=== PATIENT | female | born 1990 | race Caucasian/White ===

== ENCOUNTER → 2017-02-06 | Outpatient (CLI) | payer BC ==
[~2017-02-06] MED LIST: BCPILLS PO
[2017-02-08 13:23] LABS: LEAD BLOOD LESS THAN 1 MCG/DL (0-9)
== END | disposition home or self-care (01) ==
LOC: C.LAB1850 15:01
PROVIDERS: ATTEND Obstetrics & Gynecology
DX: R94.6 Abnormal results of thyroid function studies (principal); Z77.011 Contact with and (suspected) exposure to lead

== ENCOUNTER → 2017-02-06 | Outpatient (CLI) | payer BC | END | disposition home or self-care (01) | LOC: C.PAPS 09:56 | PROVIDERS: ATTEND Obstetrics & Gynecology | DX: Z01.419 Encounter for gynecological examination (general) (routine) without abnormal findings (principal) ==

== ENCOUNTER → 2017-07-09 | Outpatient (CLI) | payer BC ==
[2017-07-09 11:46] LABS: URINE APPEARANCE CLEAR (CLEAR); URINE BILIRUBIN NEG (NEG); URINE COLOR YELLOW; URINE NITRITE NEG (NEG); URINE PH 7.5 (4.5-7.5); URINE SPECIFIC GRAVITY 1.013 (1.000-1.030); UROBILINOGEN NEG (NEG)
[2017-07-09 11:47] LABS: MANUAL MICROSCOPIC REQUIRED? NO; REVIEW REQ? NO
== END | disposition home or self-care (01) ==
LOC: C.LABSPEC 11:22
PROVIDERS: ATTEND Obstetrics & Gynecology
DX: Z34.01 Encounter for supervision of normal first pregnancy, first trimester (principal); Z3A.00 Weeks of gestation of pregnancy not specified

== ENCOUNTER → 2017-07-16 | Outpatient (CLI) | payer BC ==
[2017-07-16 14:53] LABS: BASO % 0.1 %; BASO ABS # 0.01 K/uL (0-0.2); COMPLETE YES; EOS % 0.7 %; HEMATOCRIT 34.6 % (37-47); IG% 0.3 %; LYMPH ABS # 1.98 K/uL (1.2-3.4); MEAN CELL VOLUME 88.5 fL (80-100); MEAN CORPUSCULAR HGB CONC 36.1 g/dl (32-36); MONO % 5.8 %; NEUT % 74.1 %; PLATELET COUNT 226 K/uL (130-400); RED BLOOD COUNT 3.91 M/uL (4.2-5.4); WHITE BLOOD COUNT 10.44 K/uL (4.8-10.8)
[2017-07-16 15:20] LABS: THYROID STIMULATING HORMONE 0.883 uIu/ml (0.300-4.500)
[2017-07-19 07:28] LABS: CHLAMYDIA TRACH RNA*** NOT DETECTED (NOT DETECTED); GC (NEIS GONORRHOEAE)RNA** NOT DETECTED (NOT DETECTED)
== END | disposition home or self-care (01) ==
LOC: C.LAB1850 12:45
PROVIDERS: ATTEND Obstetrics & Gynecology
DX: Z34.01 Encounter for supervision of normal first pregnancy, first trimester (principal); E03.9 Hypothyroidism, unspecified

== ENCOUNTER → 2017-09-10 | Outpatient (CLI) | payer BC ==
[2017-09-10 15:26] LABS: GTGD 50 Grams
[2017-09-12 15:43] LABS: AFP CONCENTRATION 44.6 NG/ML; AFP MULTIPLE OF MEDIAN 1.29; AFPTS GESTATIONAL AGE 16.6 WEEKS; AFPTS INSULIN DEP DIABETIC? NO; AFPTS MATERNAL WT 154 LBS; ALPHA-FETOPROTEIN RACE CAUCASIAN=W; CIGARETTE SMOKER? NOT PROVIDED; HISTORY OF NTD NO; REPEAT SAMPLE? NO
== END | disposition home or self-care (01) ==
LOC: C.LAB1850 13:29
PROVIDERS: ATTEND Obstetrics & Gynecology
DX: Z34.02 Encounter for supervision of normal first pregnancy, second trimester (principal)

== ENCOUNTER → 2017-11-29 | Outpatient (CLI) | payer OTHER ==
[2017-11-29 15:59] LABS: HEMATOCRIT 32.6 % (37-47); HEMOGLOBIN 11.8 g/dL (12.0-16.0)
== END | disposition home or self-care (01) ==
LOC: C.LAB1850 14:43
PROVIDERS: ATTEND Obstetrics & Gynecology
DX: Z34.03 Encounter for supervision of normal first pregnancy, third trimester (principal)

== ENCOUNTER → 2017-11-29 | Outpatient (CLI) | payer OTHER | END | disposition home or self-care (01) | LOC: C.LABSPEC 15:47 | PROVIDERS: ATTEND Obstetrics & Gynecology | DX: Z34.03 Encounter for supervision of normal first pregnancy, third trimester (principal) ==

== ENCOUNTER → 2018-01-24 | Outpatient (CLI) | payer OTHER | END | disposition home or self-care (01) | LOC: C.LABSPEC 18:34 | PROVIDERS: ATTEND Obstetrics & Gynecology | DX: Z34.03 Encounter for supervision of normal first pregnancy, third trimester (principal) ==

== ENCOUNTER 2018-02-25 01:10 | Inpatient (IN) | payer OTHER ==
[~2018-02-25] VITALS: Ht 172.7 cm; Wt 79.4 kg
[2018-02-25] MEDS ORDERED: LACTATED RINGER'S 1000ML 1,000 ML IV PRN (01:44)
[2018-02-25] MEDS ORDERED: PRENTAB26 PO (01:52)
[2018-02-25 01:53] VITALS: Ht 172.7 cm; Wt 79.4 kg
[2018-02-25 02:10] LABS: HEMATOCRIT 40.5 % (37-47); HEMOGLOBIN 14.6 g/dL (12.0-16.0); MEAN CELL VOLUME 93.3 fL (80-100); MEAN CORPUSCULAR HEMOGLOBIN 33.6 pg (25-34); PLATELET COUNT 231 K/uL (130-400); RED CELL DISTRIBUTION WIDTH CV 13.1 % (11.5-14.5); RED CELL DISTRIBUTION WIDTH SD 44.9 fL (36.4-46.3); WHITE BLOOD COUNT 18.09 K/uL (4.8-10.8)
[2018-02-25] MEDS ORDERED: EpHEDrine SULFATE INJ 50 MG/ML AMP ONE (04:25)
[2018-02-25] MEDS ORDERED: BUPIVACAINE 0.25% 30 ML VIAL ONE (04:25)
[2018-02-25] MEDS ORDERED: FENTANYL 2MCG/ML ROPIV 1.25MG/ML 100ML BAG ONE (04:26)
[2018-02-25] MEDS ORDERED: FENTANYL CITRATE INJ 50 MCG/1 ML 2 ML VIAL ONE (04:26)
[2018-02-25] MEDS: LACTATED RINGER'S 1000ML 1,000 ML IV SCH ×2 (05:18→13:06)
[2018-02-25] MEDS ORDERED: LACTATED RINGER'S 1000ML 500 ML IV PRN ×2 (06:30→09:07)
[2018-02-25] MEDS ORDERED: ONDANSETRON INJ 2 MG/ML 2 ML VIAL IV PRN (06:30)
[2018-02-25] MEDS ORDERED: DiphenhydrAMINE HCL 50 MG/ML VIAL IV PRN (06:30)
[2018-02-25] MEDS ORDERED: NALOXONE HCL INJ 1 MG in SODIUM CHLORIDE 0.9% 1000ML 1,000 ML IV PRN (06:30)
[2018-02-25] MEDS ORDERED: EpHEDrine SULFATE INJ 50 MG/ML AMP IV PRN (06:30)
[2018-02-25] MEDS ORDERED: NALBUPHINE HCL INJ 10 MG/ML AMP IV PRN (06:30)
[2018-02-25] MEDS ORDERED: NALOXONE HCL INJ 0.4 MG/1 ML VIAL/CARP IV PRN (06:30)
[2018-02-25] MEDS: FENTANYL 2MCG/ML ROPIV 1.25MG/ML 100ML BAG EPI PRN ×3 (06:58→14:50)
[2018-02-25] MEDS ORDERED: OXYTOCIN 30 UNITS/500ML NSS IV PRN ×2 (09:15→15:30)
[2018-02-25] MEDS ORDERED: ACETAMINOPHEN 325 MG TAB ONE (14:27)
[2018-02-25] MEDS ORDERED: NURSING VERBAL MED ORDER ONE ×3 (14:30→14:45)
[2018-02-25] MEDS ORDERED: AMPICILLIN IV 2,000 MG in SODIUM CHLOR 0.9% AD-VAN 100ML 100 ML IV ONE (14:45)
[2018-02-25] MEDS ORDERED: LANOLIN OINT EXT PRN (15:30)
[2018-02-25] MEDS ORDERED: ACETAMINOPHEN 325 MG TAB PO PRN (15:30)
[2018-02-25] MEDS ORDERED: ACETAMINOPHEN/CODEINE 300/30MG TAB PO PRN ×2 (15:30)
[2018-02-25] MEDS ORDERED: HYDROCORTISONE ACETATE 25 MG SUPP PR PRN (15:30)
[2018-02-25] MEDS ORDERED: BENZOCAINE 20% AER SPR 82.5 GM CAN EXT PRN (15:30)
[2018-02-25] MEDS ORDERED: SUPERCREAM 0.870 % 15GM JAR EXT PRN (15:30)
[2018-02-25] MEDS ORDERED: DIPHTHERIA/TETANUS/PERTUSSIS 0.5 ML SYR/VIAL IM. ONE (15:30)
[2018-02-25] MEDS ORDERED: OXYTOCIN INJ 20 UNITS in LACTATED RINGER'S 1000ML 1,000 ML IV SCH (15:30)
--- NOTE | 2018-02-25 17:10 | Anesthesia Procedure Note ---
Anesthesia Epidural Removal Nt Date & Time February 25, 2018 at 17:10 Vital Signs Pain Intensity: 0.0 Notes Mental Status: alert / awake / arousable, participated in evaluation Nausea / Vomiting: adequately controlled Pain: adequately controlled Airway Patency, RR, SpO2: stable & adequate BP & HR: stable & adequate Hydration State: stable & adequate Neuraxial Anesthesia: was administered, sensory block is resolving Anesthetic Complications: no major complications apparent, pt satisfied with anesthetic care Epidural: removed without complications, with tip intact
--- NOTE | 2018-02-25 17:27 | DELIVERY SUMMARY ---
DATE OF OPERATION: 02/25/2018 The patient dilated to complete and pushed to deliver a viable male , Apgars 8 and 9 via over second degree perineal laceration. Mouth and nose were bulb suctioned at the perineum. Shoulders and body were delivered with ease. The infant was vigorous and crying at . 's cord was clamped at approximately 1 minute of life per the patient's instruction. Then, the was placed on maternal abdomen, where the cord was then doubly clamped and cut. Placenta was delivered spontaneously and intact 3-vessel cord. Hemostasis achieved with dilute Pitocin and uterine massage. The cervix and sulci were intact. The laceration was repaired in the usual fashion using 2-0 and 3-0 Vicryl. EBL 300 mL. Mother and baby stable in recovery. I attest to the content of the Intraoperative Record and any orders documented therein. Any exception s are noted below.
[2018-02-25] MEDS: DOCUSATE SODIUM 100 MG CAP PO SCH (19:40)
[2018-02-25 19:45] VITALS: BP 111/71; PULSE 79; TEMP 37; O2SAT 99
[2018-02-25 23:05] VITALS: BP 103/62; PULSE 84; TEMP 36.8; O2SAT 97
[2018-02-25] MEDS: IBUPROFEN 600 MG TAB PO PRN (23:09)
[2018-02-26 03:40] VITALS: BP 101/63; PULSE 72; TEMP 36.5; O2SAT 97
--- NOTE | 2018-02-26 06:19 | Progress Note ---
Subjective February 26, 2018. Subjective conversation w/ patient, physical exam Ambulation: ambulating normally Voiding: no voiding problems Diet Tolerance: Regular Diet Lochia: Small Feeding Type: Breast Feeding Pain: denies pain issues Objective Vital Signs Date Time Temp Pulse Resp B/P (MAP) Pulse Ox O2 Delivery O2 Flow Rate FiO2 02/26/18 03:40 36.5 72 16 101/63 (76) 97 Room Air 02/25/18 23:05 36.8 84 16 103/62 (76) 97 Room Air 02/25/18 23:05 97 Room Air 02/25/18 19:45 37.0 79 18 111/71 (84) 99 Room Air Physical Exam General Appearance: WELL-APPEARING, WD/WN, NO APPARENT DISTRESS Respiratory/Chest: lungs clear Cardiovascular: regular rate, rhythm Abdomen: non tender, soft Fundus: Firm, Relation to Umbilicus (1 above, needs to void) Extremities: non-tender Laboratory Results Last 24 Hours Test 02/26/18 04:44 Assessment and Plan Post- Day#: 1 Continue Routine Care: stable routine care. breast feeding.
[2018-02-26 06:48] LABS: HEMATOCRIT 35.4 % (37-47); HEMOGLOBIN 12.4 g/dL (12.0-16.0)
[2018-02-26 07:42] VITALS: BP 114/77; PULSE 66; TEMP 36.3
[2018-02-26] MEDS: PRENATAL VITAMIN TAB PO SCH (07:51)
[2018-02-26] MEDS: DOCUSATE SODIUM 100 MG CAP PO SCH ×2 (07:51→20:03)
[2018-02-26] MEDS ORDERED: PRENATAL VITAMIN TAB PO SCH (08:00)
[2018-02-26 12:01] VITALS: BP 103/66; PULSE 63; TEMP 36.4
[2018-02-26 16:30] VITALS: BP 106/69; PULSE 70; TEMP 36.7
[2018-02-26] MEDS: IBUPROFEN 600 MG TAB PO PRN (16:38)
[2018-02-26] MEDS ORDERED: BISACODYL 5 MG TABEC PO SCH (20:00)
[2018-02-26 23:30] VITALS: BP 104/63; PULSE 61; TEMP 36.4; O2SAT 98
--- NOTE | 2018-02-27 06:55 | Progress Note ---
Subjective February 27, 2018. Subjective conversation w/ patient Ambulation: ambulating normally Voiding: no voiding problems Diet Tolerance: Regular Diet Lochia: Small Feeding Type: Breast Feeding Pain: Abdominal cramping noted, worse with . Improved with analgesia Review of Systems Constitutional: No fever, No chills Respiratory: No shortness of breath Cardiac: No chest pain Abdomen: No nausea, No vomiting Female : + problem reported (Pt concerned regarding stitch possibly coming loose, reports searing pain in perineal region) Objective Vital Signs Date Time Temp Pulse Resp B/P (MAP) Pulse Ox O2 Delivery O2 Flow Rate FiO2 02/26/18 23:30 36.4 61 18 104/63 (77) 98 Room Air 02/26/18 23:30 98 Room Air 02/26/18 16:30 Room Air 02/26/18 16:30 36.7 70 16 106/69 (81) Room Air 02/26/18 12:01 36.4 63 20 103/66 (78) 02/26/18 07:42 36.3 66 18 114/77 (89) Room Air Physical Exam General Appearance: WELL-APPEARING, WD/WN, NO APPARENT DISTRESS Abdomen: soft Fundus: Firm, Non-Tender, Relation to Umbilicus (2 below) Extremities: no pedal edema, no calf tenderness Assessment and Plan Post- Day#: 2 Continue Routine Care: 27F s/p NVD complicated by chorioamnionitis day 2 - O+, Rubella Immune, GBS -ve - pt doing well clinically - Vital signs reviewed and WNL - Hemoglobin reviewed. 14.6 -> 12.4 - Encourage ambulation, monitor and control pain with Motrin PRN - Pt ready for d/c today and counselled on discharge instructions Resident Physician Supervision Note: I was present with Dr. Gusman during the history and exam. I discussed the case with the resident and agree with the findings and plan as documented in the note. Any exceptions or clarifications are listed here: PPD#2 doing well. DC home today. Documented By: Shakila Priest Resident Tracking Resident Involvement: Resident Care Provided Care Provided: OB Delivery
--- NOTE | 2018-02-27 06:56 | Discharge Instructions ---
Discharge Instructions Date of Service February 27, 2018. Admission Reason for Admission: Normal Labor Discharge Discharge Diagnosis / Problem: Vaginal Delivery Discharge Goals Goal(s): Routine recovery after delivery Medications Continue Dispensed Medications: supercream, dermaplast, tucks, lansinoh Activity Recommendations Activity Limitations: per Instructions/Follow-up section . Instructions / Follow-Up Instructions / Follow-Up ACTIVITY RECOMMENDATIONS: * Gradual return to full activity over the next 2-3 weeks. * No lifting - nothing heavier than baby over the next 2-3 weeks. * Do not engage in vigorous exercise, sexual activity or sports until cleared by your physician. * Do not drive or operate any motorized equipment until cleared by your physician. * You may shower/bathe daily. MEDICATIONS: For discomfort or pain, you may use Acetaminophen (Tylenol), Ibuprofen (Advil), or Naproxen (Aleve) following the package directions. For constipation you may use Colace following the package directions. BREAST CARE: If you are not breast feeding: * Wear a supportive bra 24 hours a day for one to two weeks. * Avoid stimulating your breasts and nipples as much as possible during the first few weeks after delivery. * When taking a shower, have the warm water hit your back, not breasts. * When your breasts feel full, apply ice packs. Usually three to four times a day helps ease the discomfort. * Take a mild pain medication (Tylenol / Motrin) when you are uncomfortable. If breast feeding: * Use breast milk to lubricate nipples. Lansinoh cream may be used for sore nipples. You do not need to remove cream prior to breast feeding. If using a different brand of cream, check the label for directions regarding removal of cream prior to nursing. * Wear a supportive bra. * If having problems with breasts or breast feeding, call a business analyst consultant or your health care provider. EPISIOTOMY CARE: After delivery, if you have an episiotomy (stitches), the following steps will ease discomfort and aid healing. * For the first 24 hours after delivery, place ice packs next to your episiotomy to help reduce swelling. * After the first 24 hour-period, sitz baths, either portable or in the tub, are suggested. A shower with a shower arm sprayed over the episiotomy may be comforting. * Michelle care should be done after each voiding and bowel movement. Squirt warm water from a plastic bottle over the perineum (region of the body between the anus and urinary opening) and pat dry. * Use Dermoplast to ease discomfort. Shake container. [place] directly over the episiotomy. Place a Tucks on a clean sanitary pad next to your episiotomy. SPECIAL CARE INSTRUCTIONS: When you are discharged from the hospital, it is important for you to follow the instructions listed below: * During the first week at home, you should be able to care for yourself and your baby. In addition, the usual light household activities are encouraged. * Limit your activities to the way you feel. Do not try to clean the house or move furniture. Be sensible. * If you actively engage in sports and have done so up until the time of your delivery, you may resume these activities as soon as you feel able. This may take up to one month or even longer. Use good judgment. * Continue to take your vitamins for at least six weeks after the of your baby. * Your diet need not be limited unless you were on a special diet before your delivery. Breast-feeding mothers need around 2500 calories per day and at least 64-80 ounces of fluid per day (8 to 10 glasses). * You should eat foods from the four major food groups. Crash diets or fad diets are to be avoided. Eating lean meats, fresh fruits and vegetables, low-fat dairy products, high fiber foods and a regular exercise program, will help you get back to your pre- weight without putting your health at risk. * Constipation is sometimes a problem after delivery. Take a mild laxative as needed. If breast feeding, Milk of Magnesia is acceptable to use. You may use a suppository or Fleets enema if no episiotomy. * A daily shower or tub bath is suggested. Be sure to thoroughly and gently dry the perineum. * A bloody vaginal discharge will usually continue until around four weeks post . A small amount of bleeding may continue for as long as six weeks. Vaginal discharge changes from the bright red bleeding after delivery to pink then brownish and finally yellowish-pink before becoming white and disappearing. * Bleeding may increase with activity. Your first period may come in 4-8 weeks. If you are breast feeding, your period may be delayed even longer. * Idana (sex) can begin whenever both you and your partner feel comfortable and do not have any form of genital infection. It is recommended that you wait at least six weeks for internal and external healing to occur. If you have questions, please talk to your health care practitioner. A condom should be used to prevent infection and . * Foreplay, gentle intercourse and lubrication is very important the first several times to prevent pain. A water-based lubricant such as K-Y jelly or Astroglide may be used. * If you have RH negative blood and your baby is RH positive, you will receive RHOGAM by injection prior to discharge. The nurse will give you a card to keep with you that has the date and place that you received RHOGAM after delivery. * During your care, you had a Rubella screen done to check for the presence of rubella antibodies in your blood. If your test was negative, you will receive a Rubella vaccine prior to discharge. This vaccine may cause a fever, soreness at the injection site and flu-like symptoms. If these symptoms persist, notify your health care practitioner. is not advised for one month after a Rubella vaccine. * Verbalizes understanding of car seat law as reviewed with patient nursing. * Car Seat hand-out given and reviewed with patient by nursing. * Shaken baby information reviewed with patient by nursing. Call you doctor if: * Heavy bleeding (saturating several pads an hour) or passing clots the size of your fist. * A fever >101 degrees F (38.3 degrees C) on two occasions four hours apart and /or chills. * Unusual pain in the pelvic or vaginal areas. * "Baby Blues" lasting longer than two weeks. If you have any questions or concerns, call your health care practitioner at . FOLLOW UP VISIT: * Please call the office at to schedule a 6 week examination. It is important you keep this appointment. It is important for you to make arrangements for either yearly or twice yearly check-ups thereafter. Current Hospital Diet Patient's current hospital diet: Regular OB Diet Discharge Diet Recommended Diet: Regular Diet Pending Studies Studies pending at discharge: no Medical Emergencies . Who to Call and When: Medical Emergencies: If at any time you feel your situation is an emergency, please call 911 immediately. . Non-Emergent Contact Non-Emergency issues call your: Primary Care Provider . . "Provider Documentation" section prepared by Bria Gusman. .
[2018-02-27] MEDS ORDERED: BISACODYL 10 MG SUPP PR PRN (07:00)
[2018-02-27 07:30] VITALS: BP 100/65; PULSE 60; TEMP 36.5; O2SAT 98
[2018-02-27 07:40] VITALS: O2SAT 98
[2018-02-27] MEDS: PRENATAL VITAMIN TAB PO SCH (08:00)
[2018-02-27] MEDS: DOCUSATE SODIUM 100 MG CAP PO SCH (08:13)
[2018-02-27] MEDS: IBUPROFEN 600 MG TAB PO PRN ×2 (08:14→17:23)
[2018-02-27 11:15] VITALS: BP 99/61; PULSE 73; TEMP 36.9; O2SAT 98
[2018-02-27 16:00] VITALS: BP 112/77; PULSE 70; TEMP 36.6; O2SAT 99
[2018-02-27 18:35] VITALS: BP_DIAS 77; PULSE 70; TEMP 36.6
== END 2018-02-27 18:45 | disposition home or self-care (01) | DRG 775 ==
LOC: C.LD 01:10 → C.OPB 01:10 → C.LD 01:47 → C.OBG 19:00
PROVIDERS: ADMIT Obstetrics & Gynecology; ATTEND Obstetrics & Gynecology
PROC: 10E0XZZ Delivery of Products of Conception, External Approach (ICD-10-PCS; principal; 2018-02-25)
PROC: 0KQM0ZZ Repair Perineum Muscle, Open Approach (ICD-10-PCS; principal; 2018-02-25)
DX: O70.1 Second degree perineal laceration during delivery (principal); Z37.0 Single live birth; Z3A.40 40 weeks gestation of pregnancy

== ENCOUNTER 2020-05-27 04:41 | Inpatient (IN) ==
[2020-05-27] MEDS ORDERED: CALCIUM CARBONATE 500 MG CHEWABLE TAB PO PRN (05:29)
[2020-05-27] MEDS ORDERED: OXYTOCIN 30 UNITS/500 ML BAG IV PRN ×2 (06:05→08:04)
[2020-05-27] MEDS ORDERED: BUPIVACAINE 0.25% 30 ML VIAL ONE (06:14)
[2020-05-27] MEDS ORDERED: ePHEDrine sulfate 50 MG/ML AMP ONE (06:14)
[2020-05-27] MEDS ORDERED: fentaNYL citrate 100 MCG/2 ML VIAL ONE (06:15)
[2020-05-27] MEDS ORDERED: fentaNYL 2MCG/ML ROPIV 1.25MG/ML 100 ML BAG EPI ONE (06:15)
[2020-05-27] MEDS: LACTATED RINGER'S 1,000 ML IV PRN ×2 (06:34→07:30)
[2020-05-27 06:39] LABS: Hematocrit (blood only) 38.4 % (37-47); Hemoglobin 13.6 g/dL (12.0-16.0); Mean Corpuscular Hemoglobin 33.7 pg (25-34); Mean Platelet Volume 8.7 fL (7.4-10.4); Platelet Count 160 K/uL (130-400); RDW Standard Deviation 48.4 fL (36.4-46.3); Red Blood Count 4.04 M/uL (4.2-5.4); White Blood Count 13.49 K/uL (4.8-10.8)
[2020-05-27] MEDS ORDERED: ePHEDrine sulfate 50 MG/ML AMP IV PRN (07:04)
[2020-05-27] MEDS ORDERED: fentaNYL 2MCG/ML ROPIV 1.25MG/ML 100 ML BAG EPI PRN (07:04)
[2020-05-27] MEDS ORDERED: ONDANSETRON INJ 2 MG/ML 2 ML VIAL IV PRN (07:04)
[2020-05-27] MEDS ORDERED: NALOXONE HCL 0.4 MG/1 ML VIAL/CARP IV PRN (07:04)
[2020-05-27] MEDS ORDERED: DiphenhydrAMINE HCL 50 MG/ML VIAL IV PRN (07:04)
[2020-05-27] MEDS ORDERED: NALOXONE HCL 1 MG in SODIUM CHLORIDE 0.9% 1000ML 1,000 ML IV PRN (07:04)
--- NOTE | 2020-05-27 07:06 | Anesthesiology Consultation ---
Date of Service May 27, 2020 Covid 19 negative on 05/24/20. Assessment & Plan Chart Review Chart Review: Patient NOT seen in Pre Admission Testing and Acceptable Risk for Labor Epidural Consults Requested none ASA ASA2 Proposed Anesthesia Anesthesia Type: Labor Epidural and CSE Risk / Benefits Reviewed With: PT / POA / Parent / Guardian, Accepts Plan and Informed Consent Obtained History Height/Weight Height: 5 ft 8 in Weight: 78.925 kg Allergies Allergy/AdvReac Type Severity Reaction Status Date / Time No Known Drug Allergies Allergy Mild None Verified 05/27/20 04:57 Medications Home Medications Medication Instructions Recorded Confirmed Last Taken PNV cmb#95-ferrous fumarate-FA 1 tab PO DAILY 12/22/18 05/27/20 05/26/20 [] Active Medications Generic Name Dose Route Start Last Admin Trade Name Freq PRN Reason Stop Dose Admin Calcium Carbonate 500 mg 05/27/20 05:29 05/27/20 05:41 Calcium Carbonate 500 Mg Chewable Tab PO 06/26/20 05:28 500 mg Q6H PRN Administration Indigestion Lactated Ringer's 1,000 mls @ 125 mls/hr 05/27/20 06:05 05/27/20 06:34 Lr IV 05/29/20 06:04 999 mls/hr .Q8H PRN Administration L&D Protocol Protocol NPO Date Last Intake of Fluids: 05/27/20 Time Last Intake of Fluids: 03:00 Date Last Intake of Solids: 05/27/20 Time Last Intake of Solids: 03:00 Past Medical History Medical History Acute sinusitis Asthma History of chicken pox Normal labor Exercise / Class Metabolic Activity II 4-5 Yardwork/Stairs/Walk up hill Past Family History Family History Grandfather (Maternal) Heart disease Hypertension Grandfather (Paternal) Heart disease Hypertension Other No significant family history Past Surgical History Surgical History S/P appendectomy S/P wisdom tooth extraction Past Anesthesia History No Hx of Anesthesia Complications and No Family Hx of Anesthesia Complications History of PONV No Hx of PONV and No Hx of Motion Sickness Social History Smoking Status: Never smoker Hx Alcohol Use: No Hx Substance Use: No substance use type: does not use Review of Systems no chest pain or sob Physical Exam Vital Signs Last Vital Signs Temp 37.2 C 05/27/20 04:59 Pulse 82 05/27/20 07:03 Resp 18 05/27/20 04:59 BP 126/67 05/27/20 07:03 Pulse Ox 100 05/27/20 07:02 ENMT Mouth: no TMJ abnormality Thyromental Distance: > or= 3.5 Finger Breadths Mallampati Class: II Neck normal visual inspection Respiratory normal respiratory effort Auscultation: lungs clear to auscultation bilaterally Cardiovascular Rate/Rhythm: regular rate and regular rhythm Musculoskeletal Spine: normal cervical ROM Neurologic moves all extremities Psychiatric Orientation: alert and oriented x 3 Testing Laboratory Results 05/27/20 06:23
[2020-05-27 07:23] LABS: Mean Corpuscular Hgb Conc 35.4 g/dL (32-36)
--- NOTE | 2020-05-27 08:13 | Labor Progress Brief Note ---
Date of Service May 27, 2020 Subjective Labor - comfortable with epidural - patient expresses worry that the epidural has made her contractions "space apart." Wants to know if we should augment. Discussed AROM now, pitocin profiled to use if needed. She is agreeable. Assessment & Plan (1) Normal labor and delivery: AROM for augmentation performed at this time. Continue current management. Pitocin can be utilized if contractions do not remain Q3m or closer. Admission and Anticipated Discharge Date Admission Date: May 27, 2020 Physical Exam Physical Exam: AROM clear fluid FHT Cat 1 [place] Q3m Results & Data ([facility]) Vital Signs (Past 12 Hours) Vital Signs Temp Pulse Resp BP Pulse Ox 05/27/20 08:07 86 100 05/27/20 08:05 84 91/51 L 05/27/20 08:02 79 100 05/27/20 07:57 72 99 05/27/20 07:52 73 100 05/27/20 07:49 77 93/54 L 05/27/20 07:47 79 92/55 L 100 05/27/20 07:45 73 93/51 L 05/27/20 07:43 68 93/53 L 05/27/20 07:42 71 100 05/27/20 07:41 79 91/54 L 05/27/20 07:39 76 92/50 L 05/27/20 07:37 77 91/50 L 100 05/27/20 07:35 77 89/53 L 05/27/20 07:33 75 98/49 L 05/27/20 07:32 71 100 05/27/20 07:31 75 94/51 L 05/27/20 07:29 73 93/54 L 05/27/20 07:27 75 90/53 L 100 05/27/20 07:25 77 91/55 L 05/27/20 07:22 73 100 05/27/20 07:17 80 136/61 100 05/27/20 07:16 85 123/57 L 05/27/20 07:15 87 91 05/27/20 07:12 89 100 05/27/20 07:10 86 90 05/27/20 07:07 81 100 05/27/20 07:03 82 126/67 05/27/20 07:02 83 100 05/27/20 06:57 76 100 05/27/20 06:52 77 100 05/27/20 06:47 79 100 05/27/20 06:42 78 100 05/27/20 06:38 79 89 L 05/27/20 06:37 78 100 05/27/20 04:59 99.0 F 18 05/27/20 04:53 76 106/55 L Coding Level of Care Code None Diagnoses Normal labor and delivery O80
--- NOTE | 2020-05-27 08:35 | History & Physical Report ---
Date of Service May 27, 2020 Assessment & Plan (1) Active labor at term: PNL: Rh pos, RI, GBS neg, COVID neg Admit, labs, start IV Epidural when desired; anesthesiology consult placed Anticipate Admission and Anticipated Discharge Date Admission Date: May 27, 2020 History of Present Illness Primary Care Provider: Mesha Donnelly MD More Mackey is a 30 y/o female currently at 40 2/7 WGA with an MELISSA 05/25/20 as determined by LMP who is here for . Pt was seen in office yesterday and had membrane stripping. She returned home and then started to notice increasing contractions and pain. Her was uncomplicated. + contractions; + movement; - fluid loss; + bloody show Had regular appointments with OB. Blood type: O+ Antibody screen: neg Labs 10/28/19 Rubella: immune VDRL/RPR: nonreactive Gonorrhea: neg Chlamydia: neg HIV: neg HbSAg: neg GBS: negative 04/29/20 COVID-19 negative 05/24/20 Other screens: panoram: low risk, female - CF/SMA prev neg AFP Allergies Allergy/AdvReac Type Severity Reaction Status Date / Time No Known Drug Allergies Allergy Mild None Verified 05/27/20 04:57 Home Medications Home Medications Medication Instructions Recorded Confirmed Type PNV cmb#95-ferrous fumarate-FA 1 tab PO DAILY 12/22/18 05/27/20 History [] Patient History Medical History (Updated 05/27/20 @ 08:32 by Rubi Gan DO) Acute sinusitis Asthma History of chicken pox Normal labor Surgical History S/P appendectomy S/P wisdom tooth extraction Family History Grandfather (Maternal) Heart disease Hypertension Grandfather (Paternal) Heart disease Hypertension Other No significant family history Social History Smoking Status: Never smoker Hx Alcohol Use: No Hx Substance Use: No Preferred Language: [place] Citizen Transmission Technician Required: No Beliefs That Will Affect Care: None marital status: marital status details: Kevin Mackey ([phone] Current Living Situation: Spouse Current Living Situation Comment: lives with spouse, son, cat-spouse changing litter current occupational status: 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 Carbajal Review of Systems Denies fever or chills. Denies shortness of breath or cough. Denies chest pain. Denies breast pain. Denies dysuria or hematuria. Denies leg pain or leg swelling. +slight VITALE x2 days. Denies dizziness or changes in vision. Physical Exam Physical Exam: General: Alert, oriented. No acute distress. Cardiac: Regular rate and rhythm, no murmurs/rubs/gallops. Respiratory: Clear to auscultation bilaterally a/p, no wheezes/rales/rhonchi. No increased work of breathing. Symmetrical chest rise. No respiratory distress. Abdomen: Gravid. Vertex position. + heart tones. + palpable contractions. EFW 8-9# Pelvic: arom by Dr. Montero. Dilation 8cm; Effacement 90%; Station -[address] Montero External FHT and external uterine monitors used; Category II tracing; baseline 150bpm; moderate FHT variability. Lower Extremities: No lower extremity edema or swelling. No deep calf pain. Madyson's negative bilaterally Results & Data ([facility]) Vital Signs (Past 12 Hours) Vital Signs Temp Pulse Resp BP Pulse Ox 05/27/20 08:22 72 99 05/27/20 08:20 73 95/53 L 05/27/20 08:17 72 97 05/27/20 08:12 85 99 05/27/20 08:10 37.3 C 20 05/27/20 08:07 86 100 05/27/20 08:05 84 91/51 L 05/27/20 08:02 79 100 05/27/20 07:57 72 99 05/27/20 07:52 73 100 05/27/20 07:49 77 93/54 L 05/27/20 07:47 79 92/55 L 100 05/27/20 07:45 73 93/51 L 05/27/20 07:43 68 93/53 L 05/27/20 07:42 71 100 05/27/20 07:41 79 91/54 L 05/27/20 07:39 76 92/50 L 05/27/20 07:37 77 91/50 L 100 05/27/20 07:35 77 89/53 L 05/27/20 07:33 75 98/49 L 05/27/20 07:32 71 100 05/27/20 07:31 75 94/51 L 05/27/20 07:29 73 93/54 L 05/27/20 07:27 75 90/53 L 100 05/27/20 07:25 77 91/55 L 05/27/20 07:22 73 100 05/27/20 07:17 80 136/61 100 05/27/20 07:16 85 123/57 L 05/27/20 07:15 87 91 05/27/20 07:12 89 100 05/27/20 07:10 86 90 05/27/20 07:07 81 100 05/27/20 07:03 82 126/67 05/27/20 07:02 83 100 05/27/20 06:57 76 100 05/27/20 06:52 77 100 05/27/20 06:47 79 100 05/27/20 06:42 78 100 05/27/20 06:38 79 89 L 05/27/20 06:37 78 100 05/27/20 04:59 37.2 C 18 05/27/20 04:53 76 106/55 L Laboratory Results Labs at admission today H.6 Hct: 38.4 WBC: 13.49 Plt: 160 Code Status & VTE Plan VTE Prophylaxis Plan VTE Prophylaxis will be ordered: No
--- NOTE | 2020-05-27 10:18 | Anesthesia Procedure Note ---
Date of Service May 27, 2020 Anesthesia Post Epidural Note Vital Signs Vital Signs: Temp Pulse Resp BP Pulse Ox 37.3 C 86 18 106/58 L 100 05/27/20 08:10 05/27/20 10:05 05/27/20 09:05 05/27/20 10:05 05/27/20 09:52 Pain Intensity Bilateral Abdomen: Pain Intensity: 3 Notes Mental Status: alert / awake / arousable and participated in evaluation Nausea / Vomiting: adequately controlled Pain: adequately controlled Airway Patency, RR, SpO2: stable & adequate BP & HR: stable & adequate Hydration State: stable & adequate Neuraxial Anesthesia: was administered and sensory block is resolving Anesthetic Complications: no major complications apparent and Pt Satisfied with anesthetic care Epidural: Removed without complications and With tip intact
--- NOTE | 2020-05-27 10:20 | Delivery Summary ---
Vaginal Delivery Summary Date of Service May 27, 2020 Vaginal Delivery Summary DIAGNOSES: 1. Patel intrauterine at 40w2d gestation. 2. Spontaneous onset of labor. 3. Group B Streptococcus Neg. PROCEDURE: Spontaneous vaginal delivery and repair of second degree laceration. SURGEON: Emelyn Montero MD. CHILD AND FAMILY COUNSELOR: None. ESTIMATED BLOOD LOSS: 250 mL. COMPLICATIONS: None. PLACENTA: Spontaneous and intact with a 3-vessel cord. DISPOSITION: Stable to labor and delivery. DESCRIPTION: The patient pushed well and brought the head to in OA position. The infant's head was allowed to deliver with contraction force and no further active pushing, with the perineum protected during this time. The shoulders delivered easily with a maternal pushing effort. There was one loop of nuchal cord, reduced on the perineum. The left shoulder was anterior. The shoulders and body delivered without any difficulty, and the infant was placed on the maternal abdomen. It was vigorous and moving all extremities, and making respiratory efforts. The cord was doubly clamped by the MD and then cut by the FOB. The placenta delivered spontaneously and was noted to be intact and with a 3VC. The cervix, vagina and perineum were examined and were found to have a second degree laceration which was remarkably hemostatic and may have represented a separation of scar tissue. This was repaired using vicryl in the usual manner with a crown stitch to rebuild the perineal body. The fundus was firm and lochia minimal immediately after delivery.
[2020-05-27] MEDS ORDERED: BENZOCAINE 20% AER SPR 82.5 GM CAN EXT PRN (10:21)
[2020-05-27] MEDS ORDERED: OXYCODONE/ACETAMINOPHEN 5mg/325mg TAB PO PRN (10:21)
[2020-05-27] MEDS ORDERED: DIPHTHERIA/TETANUS/PERTUSSIS 0.5 ML SYR/VIAL IM ONE (10:21)
[2020-05-27] MEDS ORDERED: bisacodyL 10 MG SUPP PR PRN (10:21)
[2020-05-27] MEDS ORDERED: SUPERCREAM 0.870% 15 GM JAR EXT PRN (10:21)
[2020-05-27] MEDS ORDERED: HYDROCORTISONE ACETATE 25 MG SUPP PR PRN (10:21)
[2020-05-27] MEDS: IBUPROFEN 600 MG TAB PO PRN ×2 (13:26→20:27)
[2020-05-27] MEDS: DOCUSATE SODIUM 100 MG CAP PO SCH (20:27)
--- NOTE | 2020-05-28 06:08 | Obstetrical Progress Note ---
Date of Service <Rubi Gan DO - Last Filed: 05/28/20 07:29> May 28, 2020 Assessment & Plan <Rubi Gan DO - Last Filed: 05/28/20 07:29> (1) Normal course: - PNL: Rh pos, RI, GBS neg, COVID neg - Feels well today. Eating well, voiding well, ambulating well. - Pain well controlled with ibuprofen 600mg Q4H PRN - Routine care -- OOB, ambulation, diet progression as tolerated - After discharge will have 6 week follow-up with Dr. Montero. - Will plan for d/c home today. Subjective <Rubi Gan DO - Last Filed: 05/28/20 07:29> More Mackey is a 30 y/o female who is PPD #1 following spontaneous vaginal delivery with epidural at 40 2/7 weeks. She reports feeling well overall this morning. Minimal abdominal cramping and 4/10 pain well managed on analgesics. Voiding without dysuria or difficutly. Tolerating meals overnight without nausea or vomiting. Patient has been able to ambulate some. + passing ga s and - bowel movement. Has persistent lochia with only minimal bleeding this morning. Currently . Review of Systems Denies fever or chills. Denies shortness of breath or cough. Denies chest pain. Denies breast pain. Denies dysuria. Denies leg pain or leg swelling. Denies headache or changes in vision. Physical Exam <Rubi Gan DO - Last Filed: 05/28/20 07:29> General: Alert, oriented. No acute distress. Cardiac: Regular rate and rhythm. No murmurs. Respiratory: Clear to auscultation bilaterally a/p, no wheezes/rales/rhonchi. No increased work of breathing. Symmetrical chest rise. No respiratory distress. Abdomen: Soft, nontender, nondistended. Bowel sounds present. Uterus: Uterine fundus firm, palpable 1 cm below umbilicus. Lower Extremities: No lower extremity edema or swelling. No deep calf pain. Madyson's negative bilaterally. Results & Data ([facility]) <Rubi Gan DO - Last Filed: 05/28/20 07:29> Vital Signs (Past 12 Hours) Vital Signs Temp Pulse Resp BP Pulse Ox 05/28/20 04:30 36.5 C 71 16 105/69 98 05/27/20 23:30 36.6 C 66 17 99/67 L 97 05/27/20 20:15 36.5 C 69 15 104/64 97 Laboratory Results H/H this morning 12.6/36.3 <Emelyn Montero MD - Last Filed: 05/28/20 07:45> Co-Signing Physician Notes I have reviewed the resident's note and examined the patient myself, and agree with the note above.
[2020-05-28 06:45] LABS: Hematocrit (blood only) 36.3 % (37-47); Hemoglobin 12.6 g/dL (12.0-16.0); Mean Corpuscular Hemoglobin 32.9 pg (25-34); Mean Corpuscular Hgb Conc 34.7 g/dL (32-36); Mean Corpuscular Volume 94.8 fL (80-100); Mean Platelet Volume 8.9 fL (7.4-10.4); Platelet Count 126 K/uL (130-400); RDW Coefficient of Variation 14.4 % (11.5-14.5); Red Blood Count 3.83 M/uL (4.2-5.4); White Blood Count 10.14 K/uL (4.8-10.8)
[2020-05-28] MEDS: IBUPROFEN 600 MG TAB PO PRN ×2 (07:41→13:25)
[2020-05-28] MEDS: DOCUSATE SODIUM 100 MG CAP PO SCH ×2 (07:41→20:16)
[2020-05-28] MEDS: PRENATAL VITAMIN 1 TAB PO SCH (07:41)
[2020-05-28] MEDS: ACETAMINOPHEN 325 MG TAB PO PRN ×2 (15:25→21:09)
[2020-05-28] MEDS ORDERED: bisacodyL 5 MG TABEC PO SCH (20:00)
--- NOTE | 2020-05-29 06:36 | Obstetrical Progress Note ---
Date of Service <Rubi Gan DO - Last Filed: 05/29/20 08:13> May 29, 2020 Assessment & Plan <Rubi Gan DO - Last Filed: 05/29/20 08:13> (1) Normal course: - PNL: Rh pos, RI, GBS neg, COVID neg - Feels well today. Eating well, voiding well, ambulating well. - Pt with some persistent headache. Also with some lightheadedness during ambulation. CBC ordered (results as noted above). - Pain well controlled with ibuprofen 600mg Q4H PRN - Routine care -- OOB, ambulation, diet progression as tolerated - After discharge will have 6 week follow-up with Dr. Montero. - D/c home today Subjective <Rubi Gan DO - Last Filed: 05/29/20 08:13> More Mackey is a 30 y/o female who is PPD #2 following with epi dural at 40 2/7 weeks. She reports feeling well overall this morning. Minimal abdominal cramping and 3/10 pain well managed on analgesics. Pt does report a slight persistent headache but she notes that it is improving. She also notes an episode of lightheadedness yesterday afternoon while ambulating. Voiding without dysuria or difficulty. Tolerating meals overnight without nausea or vomiting. Patient has been able to ambulate some. + passing gas. Has persistent lochia with some improvement this morning. Currently . Review of Systems Denies fever or chills. Denies shortness of breath or cough. Denies chest pain. Denies breast pain. Denies dysuria. Denies leg pain or leg swelling. + headache. Denies changes in vision. Physical Exam <Rubi Gan DO - Last Filed: 05/29/20 08:13> General: Alert, oriented. No acute distress. Cardiac: Regular rate and rhythm. No murmurs. Respiratory: Clear to auscultation bilaterally a/p, no wheezes/rales/rhonchi. No increased work of breathing. Symmetrical chest rise. No respiratory distress. Abdomen: Soft, nontender, nondistended. Bowel sounds present. Uterus: Uterine fundus firm, palpable 3 cm below umbilicus. Lower Extremities: No lower extremity edema or swelling. No deep calf pain. Madyson's negative bilaterally. Results & Data ([facility]) <Rubi Gan, DO - Last Filed: 05/29/20 08:13> Vital Signs (Past 12 Hours) Vital Signs Temp Pulse Resp BP Pulse Ox 05/29/20 00:45 36.5 C 69 16 112/72 96 Laboratory Results CBC this AM at 0633: WBC 9.99 Hgb 12.6 Hct 37.4 Plt 142 <Shakila Priest, - Last Filed: 05/29/20 08:18> Co-Signing Physician Notes Resident Physician Supervision Note: I was present with Dr. Gan during the history and exam. I discussed the case with the resident and agree with the findings and plan as documented in the note. Any exceptions or clarifications are listed here: PPD#2 doing well. Headache that is relieved by tylenol. BP wnl, no change with position. Documented By: Shakila Priest DO
[2020-05-29 07:05] LABS: Hematocrit (blood only) 37.4 % (37-47); Hemoglobin 12.6 g/dL (12.0-16.0)
[2020-05-29] MEDS: DOCUSATE SODIUM 100 MG CAP PO SCH (07:52)
[2020-05-29] MEDS: PRENATAL VITAMIN 1 TAB PO SCH (07:52)
[2020-05-29] MEDS: ACETAMINOPHEN 325 MG TAB PO PRN (07:52)
[2020-05-29 07:59] LABS: Mean Corpuscular Hemoglobin 32.6 pg (25-34); Mean Platelet Volume 8.9 fL (7.4-10.4); Platelet Count 142 K/uL (130-400); RDW Coefficient of Variation 14.4 % (11.5-14.5); RDW Standard Deviation 51.1 fL (36.4-46.3); Red Blood Count 3.87 M/uL (4.2-5.4); White Blood Count 9.99 K/uL (4.8-10.8)
[2020-05-29 08:00] LABS: Mean Corpuscular Hgb Conc 33.7 g/dL (32-36); Mean Corpuscular Volume 96.6 fL (80-100)
[2020-05-29] MEDS: IBUPROFEN 600 MG TAB PO PRN (11:24)
== END 2020-05-29 14:36 | disposition home or self-care (01) | DRG 807 ==
LOC: OPB 04:41 → 4S1 04:43 → 4S2 13:00